=== PATIENT | female | born 1985 | race African-American/Black ===

== ENCOUNTER 2017-02-27 08:58 | Emergency (ER) | payer MEDICAID ==
[~2017-02-27] VITALS: Ht 165.1 cm; Wt 104.5 kg
[2017-02-27 10:30] VITALS: BP 112/68
[2017-02-27 10:37] LABS: BLOOD UREA NITROGEN 7 mg/dL (7-18)
[2017-02-27 11:11] LABS: PATH.CAST-FLAG NOT PRESENT; SPERM-FLAG NOT PRESENT; SRC-FLAG NOT PRESENT; XTAL-FLAG NOT PRESENT; YLC-FLAG NOT PRESENT
[2017-02-27] MEDS ORDERED: AZITHROMYCIN 500 MG TABLET PO ONE (13:30)
[2017-02-27] MEDS ORDERED: metroNIDAZOLE 500 MG TABLET PO ONE (13:30)
[2017-02-27] MEDS ORDERED: CEFTRIAXONE 250 MG IM ONE (13:30)
[2017-02-27] MEDS ORDERED: metroNIDAZOLE 500 MG TABLET ONE (13:46)
[2017-02-27] MEDS ORDERED: AZITHROMYCIN 250 MG TABLET ONE (13:46)
== END 2017-02-27 13:54 | disposition home or self-care (01) ==
LOC: ED 10:57
DX: O23.592 Infection of other part of genital tract in pregnancy, second trimester (principal); N76.0 Acute vaginitis; A59.9 Trichomoniasis, unspecified; Z3A.15 15 weeks gestation of pregnancy
CPT/HCPCS: 36415; 80048; 81001; 82040; 85025; 87086; 87210; 87491; 87591; 87808; 99284